=== PATIENT | born 1970 | race Caucasian/White ===

== ENCOUNTER → 2025-06-16 12:39 | Outpatient (BNVA) | payer OTHER, SELFPAY | PROVIDERS: Visit Provider Student in an Organized Health Care Education/Training Program | DX: Z12.11 Encounter for screening for malignant neoplasm of colon (principal) | CPT/HCPCS: 99204 ==

== ENCOUNTER 2025-07-22 09:05 | Day surgery (SDC) | payer OTHER, SELFPAY ==
[2025-07-22 09:35] VITALS: BMI 40.6
[2025-07-22 09:46] VITALS: BP 171/115; PULSE 82; RESP 18; TEMP 36.4; O2SAT 98
--- NOTE | 2025-07-22 10:12 | ANES.PREANE2 ---
Pre-Anesthetic Assessment Height/Weight: Height 1.83 m Weight 136.078 kg Temp Pulse Resp BP Pulse Ox O2 Del Method 97.6 F 82 18 171/115 98 Room Air 07/22/25 09:46 07/22/25 09:46 07/22/25 09:46 07/22/25 09:46 07/22/25 09:46 07/22/25 09:46 Preop Diagnosis: screening Operation Date: 07/22/25 11:00 Proposed Procedures p Colonoscopy [id number] G0121 Z12.11(Not Applicable) - Gunnar Galvan MD Was Beta Mariann taken within 24 hours: N/A Was Clonidine taken within 24 hours: N/A Last intake: Intake Last Liquid Date 07/21/25 Last Solid Date 07/20/25 Social No alcohol and No tobacco Exam alert and oriented x 3 Airway Submandibular: within normal limits Cervical ROM: within normal limits Mallampati: Class I History/ROS No significant history except as noted Pulmonary Asthma CV/HEM Hypertension None reported Hepatic None reported GI None reported Metabolic Morbid Obesity [facility] [place]/[facility] None reported Neuropsych wakes up combative Anesthetic Plan ASA status: 3 Anesthesia: MAC Risk of > 500 ml blood loss (7ml/kg in children): No Medications/Allergies Home Medications ?Medication ?Instructions ?Recorded ?Confirmed ?Last Taken ?Type albuterol 90 mcg/actuation aerosol 90 mcg inhalation 6XD PRN 06/16/25 07/16/25 07/16/25 History inhaler Shortness Of Breath bisacodyl 5 mg tablet,delayed 5 mg PO DAILY #4 tabs 06/16/25 07/16/25 Unknown Rx release (Dulcolax (bisacodyl)) diclofenac sodium 1 % topical gel 4 g topical QID 06/16/25 07/16/25 07/15/25 History hydrochlorothiazide 12.5 mg tablet 12.5 mg PO DAILY 06/16/25 07/16/25 07/16/25 History losartan 100 mg tablet 100 mg PO DAILY 06/16/25 07/16/25 07/16/25 History magnesium citrate 296 ml PO BID 1 day #592 mL 06/16/25 07/16/25 Unknown Rx metformin 500 mg tablet 500 mg PO BID 06/16/25 07/16/25 07/16/25 History montelukast 10 mg tablet 10 mg PO DAILY 06/16/25 07/16/25 07/16/25 History nifedipine 10 mg capsule 10 mg PO BID 06/16/25 07/16/25 07/16/25 History rosuvastatin 20 mg tablet 20 mg PO DAILY 06/16/25 07/16/25 07/16/25 History sertraline 50 mg tablet 50 mg PO DAILY 06/16/25 07/16/25 07/16/25 History Allergies Allergy/AdvReac Type Severity Reaction Status Date / Time banana Allergy Severe Unknown Verified 07/22/25 09:41 Latex, Natural Rubber Allergy Severe Unknown Verified 07/22/25 09:41 lisinopril Allergy Severe Unknown Verified 07/22/25 09:41 niacin Allergy Severe Unknown Verified 07/22/25 09:41 Current Medications Generic Name Dose Route Start Last Admin Trade Name Freq PRN Reason Stop Dose Admin Sodium Chloride 1,000 mls @ 15 mls/hr 07/22/25 09:29 07/22/25 09:55 Sodium Chloride 0.9% IV 07/23/25 09:28 15 mls/hr .Q24H PRN Administration COLONOSCOPY FLUIDS PFSH Anesthesia Social History Smoking and tobacco/nicotine status: never used tobacco/nicotine
--- NOTE | 2025-07-22 10:26 | W.PM.OPSFHP ---
Same Day Surgery H&P Indication for Procedure/HPI DATE OF PROCEDURE: July 22, 2025 CHIEF COMPLAINT/INDICATIONFOR SURGICAL PROCEDURE: screening colonoscopy PREOP DIAGNOSIS: screening colonoscopy PLANNED PROCEDURE: Operation Date: 07/22/25 11:00 Proposed Procedures p Colonoscopy [id number] G0121 Z12.11(Not Applicable) - Gunnar Galvan MD Medications/Allergies* Home Medications ?Medication ?Instructions ?Recorded ?Confirmed ?Type albuterol 90 mcg/actuation aerosol 90 mcg inhalation 6XD PRN 06/16/25 07/16/25 History inhaler Shortness Of Breath diclofenac sodium 1 % topical gel 4 g topical QID 06/16/25 07/16/25 History hydrochlorothiazide 12.5 mg tablet 12.5 mg PO DAILY 06/16/25 07/16/25 History losartan 100 mg tablet 100 mg PO DAILY 06/16/25 07/16/25 History metformin 500 mg tablet 500 mg PO BID 06/16/25 07/16/25 History montelukast 10 mg tablet 10 mg PO DAILY 06/16/25 07/16/25 History nifedipine 10 mg capsule 10 mg PO BID 06/16/25 07/16/25 History rosuvastatin 20 mg tablet 20 mg PO DAILY 06/16/25 07/16/25 History sertraline 50 mg tablet 50 mg PO DAILY 06/16/25 07/16/25 History Allergies/Adverse Reactions Allergy/AdvReac Type Severity Reaction Status Date / Time banana Allergy Severe Unknown Verified 07/22/25 09:41 Latex, Natural Rubber Allergy Severe Unknown Verified 07/22/25 09:41 lisinopril Allergy Severe Unknown Verified 07/22/25 09:41 niacin Allergy Severe Unknown Verified 07/22/25 09:41 Current Medications: Generic Name Dose Route Start Last Admin Trade Name Freq PRN Reason Stop Dose Admin Sodium Chloride 1,000 mls @ 15 mls/hr 07/22/25 09:29 07/22/25 09:55 Sodium Chloride 0.9% IV 07/23/25 09:28 15 mls/hr .Q24H PRN Administration COLONOSCOPY FLUIDS Pertinent History/Comorbid Conditions* Social History Smoking and tobacco/nicotine status: never used tobacco/nicotine Pertinent Exam Findings alert, oriented x 3, clear to auscultation bilaterally, regular rate & rhythm and procedure specific exam findings abdomen soft, nt, nd Recommendations Risks and benefits of procedure reviewed and Patient/family agree to proceed Surgery/Procedure today Coding Level of Care Code Acute Code for Chg Fwd
[2025-07-22 10:49] VITALS: BP 145/92; PULSE 71; RESP 18; TEMP 36.1; O2SAT 94
[2025-07-22 11:08] VITALS: BP 143/97; PULSE 67; RESP 16; O2SAT 98
--- NOTE | 2025-07-22 11:35 | ANE.PACU2 ---
Inpatient post-anesthesia follow up: Airway intact: Yes Vital signs: Temperature 97 F Pulse Rate 67 Respiratory Rate 16 Blood Pressure 143/97 Pulse Oximetry 98 Oxygen Delivery Me thod Room Air Oxygen Flow Rate Fraction of Inspir ed Oxygen Hydration adequate: Yes Nausea and vomiting: No Pain level: 1 Mental status: Baseline
== END 2025-07-22 11:35 | disposition home or self-care (01) ==
PROVIDERS: Visit Provider Student in an Organized Health Care Education/Training Program
PROC: 0DJD8ZZ Inspection of Lower Intestinal Tract, Via Natural or Artificial Opening Endoscopic (ICD-10-PCS; CPT 45378; principal; 2025-07-22 11:00)
DX: Z12.11 Encounter for screening for malignant neoplasm of colon (principal); D12.5 Benign neoplasm of sigmoid colon; Z79.84 Long term (current) use of oral hypoglycemic drugs; I10 Essential (primary) hypertension; E66.01 Morbid (severe) obesity due to excess calories; Z68.41 Body mass index [BMI] 40.0-44.9, adult
CPT/HCPCS: 45385; 88305; J2704; J7030